=== PATIENT | female | born 1950 | race Caucasian/White ===

== ENCOUNTER 2016-12-18 08:37 | Day surgery (SDC) | payer MEDICARE, OTHER ==
[~2016-12-18 08:37] MED LIST: Lactated Ringers 1,000 ML IV SCH
[2016-12-18] MEDS ORDERED: Propofol 200 MG/20 ML SDV ONE ×2 (09:55→11:00)
[2016-12-18 12:35] VITALS: BP 104/58
--- NOTE | 2016-12-18 15:14 | OR ---
PREOPERATIVE DIAGNOSIS: Screening colonoscopy. POSTOPERATIVE DIAGNOSIS: Moderate sigmoid diverticulosis, otherwise normal exam. PROCEDURE PROPOSED: Total flexible colonoscopy. PROCEDURE DONE: Total flexible colonoscopy. INDICATION: This is a 66-year-old female comes in for colonic screening. She did have 1 done at about age 51. She denies any symptomatology and she has a negative family history for colon cancer. TECHNIQUE: The patient was brought to the endoscopy suite, placed in left lateral decubitus position. She was sedated per [employer] with propofol. The flexible video colonoscope was then passed transanally and under visualization advanced well into the cecum. Examination revealed a normal ascending, transverse and descending colon. Sigmoid colon revealed moderate diverticulosis with some tortuosity and the rectum was normal. There were no evidence of any polyps, colitis or other abnormalities and the scope was then withdrawn. The patient tolerated the procedure well. FINAL IMPRESSION: Sigmoid diverticulosis, otherwise normal exam. PLAN: The patient is reassured. I felt she could wait 10 years to have her last colonoscopic exam. SCM: 12/18/2016 11:21:54 MODL: 12/18/2016 14:57:44 /[id number]
== END 2016-12-18 12:45 | disposition home or self-care (01) ==
LOC: VM.SDS 08:37
PROVIDERS: ATTEND Surgery
DX: Z12.11 Encounter for screening for malignant neoplasm of colon (principal); K57.30 Diverticulosis of large intestine without perforation or abscess without bleeding; F41.1 Generalized anxiety disorder; F33.1 Major depressive disorder, recurrent, moderate; E66.9 Obesity, unspecified; E03.9 Hypothyroidism, unspecified; Z88.2 Allergy status to sulfonamides; Z91.09 Other allergy status, other than to drugs and biological substances; Z98.890 Other specified postprocedural states; Z98.84 Bariatric surgery status; Z79.899 Other long term (current) drug therapy
CPT/HCPCS: 00810; G0121; J2704; J7120